=== PATIENT | female | born 1950 | race Caucasian/White ===

== ENCOUNTER 2016-05-23 07:11 | Emergency (ER) | payer OTHER ==
[~2016-05-23] VITALS: Ht 172.7 cm; Wt 85.7 kg
--- NOTE | 2016-05-23 07:27 | ED GENERAL ADULT ---
History of Present Illness General Chief Complaint: Abdominal Pain/Flank Pain Stated Complaint: L FLANK PAIN SINCE 4:30AM Source: patient Exam Limitations: no limitations Vital Signs & Intake/Output Vital Signs & Intake/Output ED Intake and Output 05/24 0000 05/23 1200 Intake Total 1000 Output Total Balance 1000 Intake, IV 1000 Patient 189 lb Weight Allergies Coded Allergies: No Known Allergies (05/23/16) Reconcile Medications Meloxicam (Mobic) 15 MG TABLET 1 TAB PO DAILY PRN PAIN Ondansetron HCl (Zofran) 4 MG TABLET 1 TAB PO Q6-8P PRN NAUSEA Oxycodone HCl/Acetaminophen (Percocet 5-325 MG Tablet) 5 MG-325 MG TABLET 1 TAB PO BID PRN PAIN Tamsulosin HCl (Flomax) 0.4 MG CAP.ER.24H 1 CAP PO DAILY STONE Triage Note: PT TO ED C/O LEFT SIDED ABD PAIN. STATES IT WOKE HER UP OUT OF SLEEP AT 0430 THIS AM. C/O SOME NAUSEA, DENIES V/D. DENIES S/S. Triage Nurses Notes Reviewed? yes Onset: Abrupt Duration: hour(s): Timing: recent history HPI: 05/23/16 7:30 AM 65-year-old female presents to the emergency department with a sudden onset of severe left-sided flank pain. According to the patient she was in her usual state of health until 4:30 this morning when she woke up with severe left-sided flank pain. It radiates to her left groin. Associated with nausea. The onset of her symptoms was abrupt, the duration has been 3 hours, the severity is significant as her symptoms required to come to the emergency department for care. She has associated nausea. Past History Travel History Traveled to [place] past 21 day No Medical History Any Pertinent Medical History? see below for history Surgical History Surgical History: non-contributory Psychosocial History What is your primary language Burkin[place] Tobacco Use: Never used ETOH Use: denies use Illicit Drug Use: denies illicit drug use Family History Hx Contributory? No Review of Systems Review of Systems Constitutional: Denies: fever. EENTM: Denies: visual changes. Respiratory: Denies: short of breath. Cardiovascular: Denies: chest pain. GI: Reports: abdominal pain. Genitourinary: Denies: dysuria. Musculoskeletal: Reports: back pain. Skin: Denies: rash. Neurological/Psychological: Denies: headache. Hematologic/Endocrine: Denies: bleeding. Physical Exam Physical Exam General Appearance: well developed/nourished, alert, awake, anxious, moderate distress Head: atraumatic, normal appearance Eyes: Bilateral: normal appearance, PERRL, EOMI. Ears, Nose, Throat: normal pharynx, normal ENT inspection Neck: normal inspection, supple, full range of motion Respiratory: normal breath sounds, chest non-tender, no respiratory distress Cardiovascular: regular rate/rhythm Peripheral Pulses: 4+ radial (R), 4+ radial (L) Gastrointestinal: soft, non-tender Back: CVA tenderness (L) Extremities: no edema Neurologic/Psych: no motor/sensory deficits, awake, alert, oriented x 3 Skin: intact, normal color, warm/dry Core Measures ACS in differential dx? No CVA/TIA Diagnosis: No Severe Sepsis Present: No Septic Shock Present: No Progress Differential Diagnoses I considered the following diagnoses in my evaluation of the patient: [ Pyelonephritis, ureterolithiasis, diverticulosis, intra-abdominal abscess, perforated viscus] Plan of Care: Orders Procedure Date/time Status Add-on Test (ER Only) 05/23 944 Active CULTURE,URINE 05/23 740 Active URINALYSIS 05/23 740 Complete COMPREHENSIVE METABOLIC PANEL 05/23 740 Complete CBC WITHOUT DIFFERENTIAL 05/23 740 Complete Laboratory Tests 05/23/16 1009: Urine Color YEL, Urine Clarity CLEAR, Urine pH 6.0, Ur Specific [place] 1.015, Urine Protein NEG, Urine Ketones NEG, Urine Nitrite NEG, Urine Bilirubin NEG, Urine Urobilinogen 0.2, Ur Leukocyte Esterase NEG, Ur Microscopic SEDIMENT EXAMINED, Urine RBC 5-10 H, Urine WBC RARE, Ur Epithelial Cells FEW, Urine Mucus FEW, Urine Hemoglobin SMALL H, Urine Glucose NEG 05/23/16 0741: Anion Gap 12, Estimated GFR > 60, BUN/Creatinine Ratio 15.0, Glucose 126 H, Calcium 9.9, Total Bilirubin 0.9, AST 34, ALT 47, Alkaline Phosphatase 93, Total Protein 7.1, Albumin 4.3, Globulin 2.8, Albumin/Globulin Ratio 1.5, CBC w Diff NO MAN DIFF REQ, RBC 4.39, MCV 95.8, MCH 32.7 H, RDW 12.9, MPV 8.3, Gran % 61.6 , Lymphocytes % 29.7, Monocytes % 6.8, Eosinophils % 1.6, Basophils % 0.3, Absolute Granulocytes 4.6, Absolute Lymphocytes 2.2, Absolute Monocytes 0.5, Absolute Eosinophils 0.1, Absolute Basophils 0, PUBS MCHC 34.1 Microbiology 05/23 1009 URINE ROUT: Urine Culture - RECD Initial ED EKG: none Departure Departure Disposition: HOME OR SELF CARE Condition: Stable Clinical Impression Primary Impression: Renal colic Referrals: HALI SILVA,LIEN Ponce (PCP/Family) Referred to [facility] as new patient No Departure Forms: Customer Survey General Discharge Information Prescriptions: Current Visit Scripts Meloxicam (Mobic) 1 TAB PO DAILY PRN PAIN #10 TAB Oxycodone HCl/Acetaminophen (Percocet 5-325 MG Tablet) 1 TAB PO BID PRN PAIN #10 TAB Ondansetron HCl (Zofran) 1 TAB PO Q6-8P PRN NAUSEA #5 TAB Tamsulosin HCl (Flomax) 1 CAP PO DAILY #7 CAP Comments 05/23/16 10:50 AM Pain is minimal. Urinalysis is negative. CT shows a 2 x 4 mm stone. The patient was treated with Flomax Percocet and ibuprofen and Zofran. She will follow-up with the urologist tomorrow or return to the emergency department if worse CT results shown below PATIENT: ZENA LOPES PRESENT AGE: 65 PATIENT ACCOUNT NO: [id number] : 52 LOCATION: [facility] ORDERING PHYSICIAN: MIREYA BURKS DO SERVICE DATE: 05/23/16 EXAM TYPE: CAT - CT ABD & PELVIS W/O IV CONTRAS EXAMINATION: CT ABDOMEN AND PELVIS WITHOUT CONTRAST CLINICAL INFORMATION: Left flank pain. Evaluate for stone. COMPARISON: None TECHNIQUE: Multidetector volumetric imaging was performed from the superior aspect of the liver through the pubic symphysis. Sagittal and coronal reformatted images were obtained on the technologist's workstation. DLP: 540 mGy-cm FINDINGS: The lung bases are clear. The liver may be low in attenuation suggestive of fatty infiltration. No focal liver lesion is seen. The gallbladder has been removed. The spleen, pancreas, adrenal glands and right kidney are normal. There is mild left hydronephrosis and proximal ureteral dilatation from a 4 x 2 mm left proximal to mid ureteral stone. There is stranding of the perinephric fat and fat surrounding the left proximal ureter questionable for urine extravasation. Differential would include infection. There is a small 2 mm left upper pole renal stone. The bladder is normal. The uterus appears to have been removed. No pelvic mass is seen. There is evidence of diverticulosis. Small and large bowel is otherwise normal. The appendix is normal. No ascites or adenopathy is seen. There is a small umbilical hernia containing fat. There is a small upper midline ventral hernia containing fat. There are degenerative changes of the spine. IMPRESSION: Mild left hydronephrosis and proximal ureteral dilatation from a 2 x 4 mm left proximal ureteral stone. There is stranding of the left perinephric fat and left proximal ureter questionable for urine extravasation. Differential would include infection. Small 2 mm left upper pole renal stone. Diverticulosis. Fatty liver. DICTATED BY: NORMAN GALLARDO MD DATE/TIME DICTATED:05/23/16908 CUSTOMS PORT DIRECTOR:GERALDO DATE/TIME TRANSCRIBED:05/23/16908 CONFIDENTIAL, DO NOT COPY WITHOUT APPROPRIATE AUTHORIZATION. <Electronically signed in Other Vendor System> SIGNED BY: NORMAN GALLARDO MD [id number] Critical Care Note Critical Care Note Critical Care Time: non-applicable
[2016-05-23 08:01] LABS: ABSOLUTE BASOPHIL COUNT 0 /CUMM (0.0-0.2); ABSOLUTE EOSINOPHIL COUNT 0.1 /CUMM (0.0-0.7); ABSOLUTE GRANULOCYTE CT 4.6 /CUMM (1.4-6.5); ABSOLUTE LYMPH COUNT 2.2 /CUMM (1.2-3.4); ABSOLUTE MONOCYTE COUNT 0.5 /CUMM (0.10-0.60); BASOPHIL % 0.3 % (0.0-2.0); EOSINOPHIL % 1.6 % (0-5); GRANULOCYTE % 61.6 % (42.2-75.2); MEAN CORPUSCULAR HGB 32.7 PG (27.0-31.0); MEAN CORPUSCULAR HGB CONC 34.1 G/DL (33.0-37.0); MEAN CORPUSCULAR VOLUME 95.8 FL (81.0-99.0); MEAN PLATELET VOLUME 8.3 FL (7.4-10.4); PLATELET COUNT 244 /CUMM (130-400); RBC DISTRIBUTION WIDTH 12.9 % (11.5-14.5); RED BLOOD CELL CT 4.39 /CUMM (4.20-5.40); WHITE BLOOD CELL COUNT 7.4 /CUMM (4.8-10.8)
--- NOTE | 2016-05-23 09:32 | CT SCAN REPORT ---
EXAMINATION: CT ABDOMEN AND PELVIS WITHOUT CONTRAST CLINICAL INFORMATION: Left flank pain. Evaluate for stone. COMPARISON: None TECHNIQUE: Multidetector volumetric imaging was performed from the superior aspect of the liver through the pubic symphysis. Sagittal and coronal reformatted images were obtained on the technologist's workstation. DLP: 540 mGy-cm FINDINGS: The lung bases are clear. The liver may be low in attenuation suggestive of fatty infiltration. No focal liver lesion is seen. The gallbladder has been removed. The spleen, pancreas, adrenal glands and right kidney are normal. There is mild left hydronephrosis and proximal ureteral dilatation from a 4 x 2 mm left proximal to mid ureteral stone. There is stranding of the perinephric fat and fat surrounding the left proximal ureter questionable for urine extravasation. Differential would include infection. There is a small 2 mm left upper pole renal stone. The bladder is normal. The uterus appears to have been removed. No pelvic mass is seen. There is evidence of diverticulosis. Small and large bowel is otherwise normal. The appendix is normal. No ascites or adenopathy is seen. There is a small umbilical hernia containing fat. There is a small upper midline ventral hernia containing fat. There are degenerative changes of the spine. IMPRESSION: Mild left hydronephrosis and proximal ureteral dilatation from a 2 x 4 mm left proximal ureteral stone. There is stranding of the left perinephric fat and left proximal ureter questionable for urine extravasation. Differential would include infection. Small 2 mm left upper pole renal stone. Diverticulosis. Fatty liver.
[2016-05-23 10:51] VITALS: BP 122/67
[2016-05-23] MEDS ORDERED: ZOFRAN4 M2 PO (10:53)
[2016-05-23] MEDS ORDERED: MOBIC15 M1 PO (10:53)
[2016-05-23] MEDS ORDERED: PERCOCET 5-3251 EACH PO (10:53)
[2016-05-23] MEDS ORDERED: FLOMAX0.4 M1 PO (10:53)
== END 2016-05-23 11:01 ==
LOC: ERH 07:11
PROVIDERS: Emergency Medicine
DX: N23 Unspecified renal colic (principal)
CPT/HCPCS: 74176; 81001; 87086; 96374; 96375; J1885; J2405